=== PATIENT | male | born 1965 | race Caucasian/White ===

== ENCOUNTER → 2020-03-20 | Emergency (ER) | payer SELFPAY ==
[~2020-03-20] MED LIST: Iopamidol 370 76% 100 ML VIAL ONE; Ondansetron PF 4 MG/2 ML Vial IVP ONE
[2020-03-20 08:57] LABS: #Basophils 0.1 thou/uL (0.0-0.2); #Eosinphils 0.3 thou/uL (0.0-0.7); #Lymphocytes 2.7 thou/uL (1.20-3.40); #Monocytes 0.9 thou/uL (0.11-0.59); #Neutrophils 4.8 thou/uL (1.40-6.50); %Basophils 0.9 % (0.0-1.0); %Eosinophils 3.4 % (0.0-10.0); %Lymphocytes 31.2 % (21.0-51.0); %Monocytes 9.9 % (0.0-10.0); %Neutrophils 54.6 % (42.0-75.0); Hemoglobin 16.1 g/dL (14.0-18.0); Mean Corpuscular HGB CONC 32.1 g/dL (32.0-36.0); Mean Corpuscular Volume 96.5 fL (78.0-98.0); Mean Platelet Volume 7.8 fL (7.4-10.4); Platelet Count 238 thou/uL (130-400); RBC Distribution Width 11.1 % (11.5-14.5); Red Blood Cell (RBC) Count 5.19 mill/uL (4.70-6.10); White Blood Cell (WBC) Count 8.8 thou/uL (4.8-10.8)
[2020-03-20 08:59] LABS: Chloride 101 mmol/L (98-107); Potassium 3.3 mmol/L (3.5-5.1); Sodium 139 mmol/L (136-145)
[2020-03-20 09:00] LABS: Albumin 4.1 g/dL (3.5-5.0); BUN (Urea Nitrogen) 6 mg/dL (8.4-25.7); Bilirubin, Total 0.8 mg/dL (0.2-1.2); Calc. Creatinine Clearance 0 mL/min (70-130); Calcium 8.7 mg/dL (7.8-10.44); Estimated GFR-MDRD 86; Globulin 3.6 g/dL (2.4-3.5); Glucose 101 mg/dL (70-105); Protein, Total 7.7 g/dL (6.0-8.3)
[2020-03-20 09:01] LABS: ALT (SGPT) 59 U/L (8-55); AST (SGOT) 43 U/L (5-34); Alcohol 224 mg/dL (Less than 10); Alkaline Phosphatase 68 U/L (40-110); Carbon Dioxide 23 mmol/L (22-29)
[2020-03-20 09:02] LABS: Anion Gap 18 mmol/L (10-20)
--- NOTE | 2020-03-20 14:10 | CT ---
PRELIMINARY REPORT/[facility]/EMERGENCY AFTER HOURS PROCEDURE: EXAM: CT Head Without Intravenous Contrast. CLINICAL HISTORY: FALL, AMS, ETOH TECHNIQUE: Axial computed tomography images of the head/brain without intravenous contrast. COMPARISON: None provided. FINDINGS: BRAIN: No acute intraparenchymal hemorrhage. No mass lesion. No CT evidence for acute territorial infarct. N o midline shift or extra-axial collection. ORBITS: The orbits are unremarkable. SINUSES AND MASTOIDS: Submucosal thickening in the inferior right frontal sinus and involving a few anterior right ethmoid air cells raising the possibility of mild sinusitis. SOFT TISSUES: No significant facial or scalp soft tissue swelling evident. No radiopaque foreign body is seen. BONES: No acute skull fracture. IMPRESSION: 1. No evidence of acute intracranial abnormality. 2. Submucosal thickening in the inferior right frontal sinus and involving a few anterior right ethmo id air cells raising the possibility of mild sinusitis. ELECTRONICALLY SIGNED BY: Samuel Espana MD Mar 20, 2020 2:30:27 AM CDT This report is intended for review by the ordering physician only, in accordance of law. If you recei ve this report in error, please call [facility] at [phone]. FINAL REPORT CT OF THE BRAIN WITHOUT CONTRAST: 03/20/20 NOTE: Final reading delayed due to technical issues on this study. The ventricles are normal in size with no shift. No intracranial bleeding, mass or sign of acute stro ke was found. No extra-axial hematoma was seen. The skull appears intact. There are no fluid levels i n the sphenoid sinus. IMPRESSION: No acute intracranial findings. Report in agreement with preliminary reading by [facility]. POS: HOME
--- NOTE | 2020-03-20 14:45 | CT ---
PRELIMINARY REPORT/[facility]/EMERGENCY AFTER HOURS PROCEDURE: EXAM: CT Cervical Spine Without Intravenous Contrast. CLINICAL HISTORY: FALL, TRAUMA, TECHNIQUE: Axial computed tomography images of the cervical spine without intravenous contrast. Sagittal and cor onal reformations performed. COMPARISON: None provided. FINDINGS: BONES: Limited evaluation at the C6 and C7 levels due to motion-related misregistration artifact. No findings of acute cervical spine fracture where not obscured by motion artifact. Loss of cervical lordosis is most likely positional and/or degenerative, possibly due to muscle spasm . DISCS / DEGENERATIVE CHANGES: Degenerative changes resulting in varying degrees of central canal and neural foraminal stenosis. SOFT TISSUES: No prevertebral soft tissue swelling. No apical pneumothorax. IMPRESSION: 1. Limited evaluation at the C6 and C7 levels due to motion-related misregistration artifact. 2. No findings of acute cervical spine fracture where not obscured by motion artifact. 3. Degenerative changes resulting in varying degrees of central canal and neural foraminal stenosis. 4. Loss of cervical lordosis is most likely positional and/or degenerative, possibly due to muscle sp asm. ELECTRONICALLY SIGNED BY: Samuel Espana MD Mar 20, 2020 2:41:04 AM CDT This report is intended for review by the ordering physician only, in accordance of law. If you recei ve this report in error, please call [facility] at [phone]. FINAL REPORT CT OF THE CERVICAL SPINE 03/20/20 NOTE: Final reading of this study was slightly delayed due to technical difficulties. Spiral CT of the cervical spine was done following trauma. It should be noted that there was motion a rtifact on some of the lower slices that resulted in severe motion artifact around the C6-C7 levels. As such, this study is lower sensitivity in this region. No fracture, dislocation, or disc space narrowing was seen. The C1 to dens distance is normal and the soft tissues are normal in thickness. There was no signs of severe central canal or foraminal stenos is. On the sagittal view, the apparent off-set of C6 on C7 is due to motion misregistration. This can be seen by comparing with the patch sander film that shows no subluxation. The lung apices show some scarring but no pneumothorax. There is, however, a 7 mm hypodense nodule in the right lobe of the thyroid gland. A follow-up thyroid ultrasound is recommended. IMPRESSION: 1. No acute bony findings except for potentially some straightening of the cervical spine which may be due to muscle spasm. 2. Misregistration artifact at the C6-C7 level that significantly degrades the sensitivity of th e study in this location. 3. 7 mm lucent nodule in the right lobe of the thyroid gland. Elective ultrasound recommended fo r follow-up. Report in substantial agreement with preliminary reading by [facility]. POS: HOME
--- NOTE | 2020-03-20 14:51 | CT ---
PRELIMINARY REPORT/[facility]/EMERGENCY AFTER HOURS PROCEDURE: EXAM: CT Abdomen and Pelvis with Intravenous Contrast CLINICAL HISTORY: FALL, TRAUMA TECHNIQUE: Axial computed tomography images of the abdomen and pelvis with intravenous contrast. CONTRAST: With; ISO 370, 96mL COMPARISON: None provided. FINDINGS: LUNG BASES: No basilar airspace consolidation or pleural effusion. Bibasilar dependent atelectasis. LIVER: The liver is enlarged measuring 20.1 cm in length. The liver is hypoenhancing. GALLBLADDER AND BILE DUCTS: Unremarkable. No calcified stone. No ductal dilation. PANCREAS: Unremarkable. SPLEEN: Unremarkable. ADRENAL GLANDS: Unremarkable. KIDNEYS, URETERS, AND BLADDER: Unremarkable. No hydronephrosis or nephrolithiasis. No ureteral or bladder calculi. STOMACH AND BOWEL: No obstruction. No wall thickening. No CT evidence of colitis or acute diverticulitis. APPENDIX: No CT evidence for appendicitis. PERITONEUM: No free fluid. No free air. LYMPH NODES: No lymphadenopathy. REPRODUCTIVE: Unremarkable as visualized. VASCULATURE: No aortic aneurysm. BONES: No fracture or suspicious osseous abnormality. Multilevel degenerative disc disease. ABDOMINAL WALL AND SOFT TISSUES: Hypodense nodular lesion deep to the left lower ventral abdominal wall and adjacent to the bladder me asuring 2.0 x 2.7 cm. IMPRESSION: No acute intra-abdominal or pelvic abnormality. Nonspecific nodular lesion deep to the left lower ventral abdominal wall. The lesion may be further evaluated with ultrasound. ELECTRONICALLY SIGNED BY: J Carlos Ferguson MD Mar 20, 2020 3:07:46 AM CDT This report is intended for review by the ordering physician only, in accordance of law. If you recei ve this report in error, please call [facility] at [phone]. FINAL REPORT CT ABDOMEN AND PELVIS WITH CONTRAST: 03/20/[address] of the abdomen and pelvis was done for evaluation following trauma. The study was done with IV contrast. The lung bases are clear. There may be some fatty infiltration of the liver, but no focal lesions, la cerations or signs of hematoma were found. The spleen, pancreas, adrenal glands, kidneys, gallbladder , and abdominal aorta showed no acute findings. The bowel shows no distention to suggest obstruction . No free air or free fluid was seen. CT of the pelvis shows no solid pelvic masses, free fluid or inflammatory change. The prostate gland was mildly generous in size. An incidental finding is a smooth well-defined 2.7 cm fluid density stru cture just anterior and lateral to the distended urinary bladder on the left side. The CT density ins guido is identical to urine. It could be a bladder diverticulum, though I cannot find an actual connec tion to the bladder on any of these images. Some other sort of benign cyst is theoretically possible. It is certainly not related to current trauma. The visible portions of the spine and lower ribs all appeared intact. No fractures were seen. The bon y pelvis appeared intact as well. IMPRESSION: 1. No acute traumatic findings. 2. Small fluid density structure just anterior and to the left of the urinary bladder. A bladder diverticulum would be the most common cause for such a finding, though I could not establish a conne ction between it and the bladder on the images provided. Report in agreement with preliminary reading by [facility]. POS: HOME
== END | disposition home or self-care (01) ==
LOC: BURERS 01:10
DX: S30.1XXA Contusion of abdominal wall, initial encounter (principal); S50.312A Abrasion of left elbow, initial encounter; S50.311A Abrasion of right elbow, initial encounter; F10.129 Alcohol abuse with intoxication, unspecified; F31.9 Bipolar disorder, unspecified; F43.10 Post-traumatic stress disorder, unspecified; Y90.7 Blood alcohol level of 200-239 mg/100 ml; V89.2XXA Person injured in unspecified motor-vehicle accident, traffic, initial encounter
CPT/HCPCS: 70450; 72125; 74177; 80053; 80307; 85025; 96374; J2405; Q9967